=== PATIENT | male | born 1985 | race Caucasian/White ===

== ENCOUNTER 2022-08-06 11:08 | Emergency (ER) | payer OTHER ==
[~2022-08-06] VITALS: Ht 177.8 cm; Wt 85.3 kg
[2022-08-06 11:17] VITALS: BP 141/74
[2022-08-06] MEDS ORDERED: PROM118S5 PO (12:53)
== END 2022-08-06 13:04 | disposition home or self-care (01) ==
LOC: MED 11:08
DX: T16.2XXA Foreign body in left ear, initial encounter (principal); J06.9 Acute upper respiratory infection, unspecified; K62.5 Hemorrhage of anus and rectum; X58.XXXA Exposure to other specified factors, initial encounter; Y93.89 Activity, other specified; Y92.89 Other specified places as the place of occurrence of the external cause; Y99.8 Other external cause status
CPT/HCPCS: 69200; 99284

== ENCOUNTER 2023-09-01 13:16 | Emergency (ER) | payer OTHER ==
[~2023-09-01] VITALS: Ht 177.8 cm; Wt 86.8 kg
[~2023-09-01 13:16] MED LIST: PROM118S5 PO
[2023-09-01 13:30] VITALS: BP 162/90; PULSE 110; RESP 16; TEMP 98.4; O2SAT 98
[2023-09-01] MEDS ORDERED: MIRABULK PO (14:27)
[2023-09-01] MEDS ORDERED: LIDO28CR2 TP (14:27)
[2023-09-01 14:44] VITALS: BP 157/80; PULSE 109; RESP 19; O2SAT 97
== END 2023-09-01 14:45 | disposition home or self-care (01) ==
LOC: MED 13:16
DX: K64.4 Residual hemorrhoidal skin tags (principal); I10 Essential (primary) hypertension; Z79.899 Other long term (current) drug therapy
CPT/HCPCS: 99282